=== PATIENT | female | born 1940 | race Caucasian/White ===

== ENCOUNTER 2018-08-30 08:03 | Outpatient (CLI) | payer MEDICARE ==
[2018-08-30] MEDS ORDERED: Gadobenate Dimeglumine 529 MG/1 ML (20ML VIAL) ONE (10:15)
--- NOTE | 2018-08-30 11:09 | MRI ---
MRI LUMBAR SPINE WITH AND WITHOUT CONTRAST: INDICATIONS: Low back pain with right-sided sciatica. COMPARISON: No CT, MR, or radiographic comparisons are available. CONTRAST: MultiHance 15 mL. TECHNIQUE: Multiplanar, multisequence MR images were obtained of the lumbar spine with and without IV contrast. FINDINGS: Five lumbar type vertebral bodies are assumed for the purposes of this exam, due to lack of radiograp hic comparison. The conus is seen to terminate at approximately T12-L1. There is grade 1 anterolisthesis of L4 on L5 . Bone marrow signal intensity appears within normal limits. L5-S1: There is moderate to severe facet joint degenerative change bilaterally. There is a broad-ba sed bulge. There is no appreciable central canal or neural foraminal narrowing. L4-L5: There is advanced facet joint degenerative change, grade 1 anterolisthesis, a broad-based bul ge, and ligamentum flavum hypertrophy, inducing severe central canal narrowing and mild bilateral farrukh ral foraminal narrowing. L3-L4: There is a broad-based bulge with facet joint degenerative change but no appreciable central canal or neural foraminal narrowing. L2-L3: There is mild facet joint degenerative change and bibasilar bulge, but no appreciable central canal or neural foraminal narrowing. L1-L2: There is no appreciable central canal or neural foraminal narrowing. T12-L1: There is no appreciable central canal or neural foraminal narrowing. No definite abnormal enhancement is seen. IMPRESSION: 1. Severe central canal narrowing at L4-L5 due to broad-based bulge, grade 1 anterolisthesis, and se suni facet joint degenerative change. There is mild bilateral neural foraminal narrowing at L4-L5. 2. Multilevel spondylosis of the lumbar spine, as detailed above. POS: [facility]
== END 2018-08-30 08:04 | disposition home or self-care (01) ==
LOC: TBSIIMAG 08:03
PROVIDERS: ATTEND Family Medicine
DX: M51.16 Intervertebral disc disorders with radiculopathy, lumbar region (principal); M47.26 Other spondylosis with radiculopathy, lumbar region; G89.29 Other chronic pain; M48.061 Spinal stenosis, lumbar region without neurogenic claudication; M43.16 Spondylolisthesis, lumbar region; M47.817 Spondylosis without myelopathy or radiculopathy, lumbosacral region
CPT/HCPCS: 72158; 82565; A9577

== ENCOUNTER 2018-10-02 05:33 | Day surgery (SDC) | payer MEDICARE ==
[2018-09-29 15:26] VITALS: BMI 27.4
[2018-10-02] MEDS ORDERED: Thrombin 5000 UNITS/5 ML VIAL ONE (06:38)
[2018-10-02] MEDS ORDERED: Bupivacaine HCl 0.5%/Epinephrine 1:200,000/PF 30 ml Vial ONE (06:38)
[2018-10-02] MEDS ORDERED: Insulin Regular 300 UNITS/3 ML VIAL ONE (06:46)
[2018-10-02] MEDS ORDERED: Fentanyl 100 MCG/2 ML VIAL ONE ×3 (07:11→09:25)
[2018-10-02] MEDS ORDERED: Promethazine HCl 25 MG/ML VIAL ONE (10:56)
--- NOTE | 2018-10-02 11:03 | OP ---
DATE OF PROCEDURE: 10/02/2018 QA CONSULTANT: Vahid Flores PA-C INDICATION: Pain. DIAGNOSIS: Lumbar spondylolisthesis with lumbar stenosis with lumbar radiculopathy and neurogenic claudication. PROCEDURES PERFORMED: L4-L5 facetectomy and decompression, L4-L5 posterolateral instrumented fusion, placement of allograft, and placement of autograft. ANESTHESIA: General. DESCRIPTION OF PROCEDURE: The patient was brought into the operating room and placed under general anesthesia. She was flipped from the supine to prone position on the operating room table. A linear incision was planned over the L4-L5 segment. After prepping and draping and after an appropriate preoperative pause, the incision was created. The soft tissues were swept away from midline. A self-retaining retractor was placed in the wound for optimal exposure. After confirming the appropriate level of C-arm fluoroscopy, high-speed cutting drill bit as well as 2, 3, and 4 mm Kerrisons were used to perform facetectomies bilaterally at the L4-L5 segment. After decompressing the exiting and descending nerve roots as well as the lateral recesses, pedicle screws were placed to the L4 and L5 pedicles bilaterally. An intraoperative 3D CT scan was performed to confirm placement of hardware. Allograft and autograft material were then placed within the lateral confines of the instrumentation construct. The wound was irrigated. Hemostasis was maintained throughout. The wound was then closed in anatomic layers and a pressure dressing was applied. There were no known procedural complications. Job ID: [id number]
[2018-10-02] MEDS ORDERED: Morphine 2 MG/ML SYRINGE ONE ×2 (12:00→12:35)
[2018-10-02] MEDS ORDERED: HYDROcodone/Acetaminophen 5/325 mg Tablet ONE ×3 (13:20→17:12)
[2018-10-02] MEDS ORDERED: tiZANidine HCl 4 MG TAB ONE (16:01)
--- NOTE | 2018-10-03 21:01 | EKG ---
Test Reason : PREOP Blood Pressure : / mmHG Vent. Rate : 091 BPM Atrial Rate : 091 BPM P-R Int : 200 ms QRS Dur : 082 ms QT Int : 368 ms P-R-T Axes : 061 029 052 degrees QTc Int : 452 ms Normal sinus rhythm Normal ECG No previous ECGs available Confirmed by DR. Williams MONTAÑO MD ([id number]) on 10/03/2018 9:01:16 PM Referred By: CHRISTOPHER Confirmed By:DR. Williams MONTAÑO MD
== END 2018-10-02 17:40 | disposition home or self-care (01) ==
LOC: SDC 05:33
PROVIDERS: ATTEND Neurological Surgery
PROC: 0SG0071 Fusion of Lumbar Vertebral Joint with Autologous Tissue Substitute, Posterior Approach, Posterior Column, Open Approach (ICD-10-PCS; principal; 2018-10-02)
DX: M43.16 Spondylolisthesis, lumbar region (principal); M54.16 Radiculopathy, lumbar region; M48.062 Spinal stenosis, lumbar region with neurogenic claudication; E11.9 Type 2 diabetes mellitus without complications; I10 Essential (primary) hypertension; F03.90 Unspecified dementia, unspecified severity, without behavioral disturbance, psychotic disturbance, mood disturbance, and anxiety; Z79.4 Long term (current) use of insulin; Z79.82 Long term (current) use of aspirin; Z79.899 Other long term (current) drug therapy
CPT/HCPCS: 36416; 76000; 93005; 93010; C1713; C1768; J0670; J1815; J2270; J2550; J3010